=== PATIENT | male | born 1965 | race Caucasian/White ===

== ENCOUNTER 2017-01-28 10:22 | Emergency (ER) | payer OTHER ==
[2017-01-28] MEDS ORDERED: MOTRIN 600 MG PO ONE (10:47)
--- NOTE | 2017-01-28 10:51 | ERPHSYRPT ---
- History of Present Illness Time Seen by Provider: 01/28/17 10:36 Source: patient Patient Subjective Stated Complaint: Pt states he noticed on 01/26/17 he had swelling of his left lower leg. pt states he has pain and swelling. denies any injury. Triage Nursing Assessment: pt pink, warm, dry. left lower leg swelling noted. pedal pulses present and equal in both. no brusing or redness noted. Physician History: CC: left lower leg pain Hx: 51 y/o patient of Dr Apolinar Begum. He noted Friday (3 days) left posterior leg pain when he got out of bed. There was swelling in the leg. Pain to walk. No specific injury. He has hx oif gout. It is not really the joint hurting. Hx of heart disease. No fever, chills, redness. No recent abtx use. Allergies/Adverse Reactions: Penicillins Allergy (Mild, Unverified 01/28/17 10:32) Home Medications: Allopurinol 300 mg [Zyloprim 300 mg] 300 mg PO DAILY 01/28/17 [History] Aspirin/Calcium Carbonate/Mag [Aspirin Buffered 325 mg Tab] 325 mg PO BID [History] Carvedilol 12.5 mg [Coreg 12.5 mg] 12.5 mg PO BID 01/28/17 [History] Chlorthalidone 25 mg PO DAILY 01/28/17 [History] Isosorbide Mononitrate 30 mg [Imdur 30 MG] 30 mg PO DAILY 01/28/17 [History ] Losartan Potassium 50 mg [Cozaar 50 MG] 50 mg PO DAILY 01/28/17 [History] Ranolazine 500 MG [Ranexa 500 MG] 500 mg PO BID 01/28/17 [History] Hx Tetanus, Diphtheria Vaccination/Date Given: Yes (up to date) Hx Influenza Vaccination/Date Given: No Hx Pneumococcal Vaccination/Date Given: No Immunizations Up to Date: Yes - Review of Systems Constitutional: No Fever, No Chills Respiratory: No Dyspnea Cardiac: No Chest Pain Musculoskeletal: Other (pain left lower leg), No Back Pain, No Neck Pain All Other Systems: Reviewed and Negative - Past Medical History Pertinent Past Medical History: Yes Neurological History: No Pertinent History ENT History: No Pertinent History Cardiac History: Coronary Artery Disease, High Cholesterol, Hypertension, Other Respiratory History: No Pertinent History Endocrine Medical History: No Pertinent History Musculoskeletal History: No Pertinent History GI Medical History: GERD History: No Pertinent History Psycho-Social History: No Pertinent History Male Reproductive Disorders: No Pertinent History - Past Surgical History Past Surgical History: Yes Neuro Surgical History: No Pertinent History Cardiac: CABG, Cardiac Catheterization, Cardiac Stent Gastrointestinal: No Pertinent History Genitourinary: No Pertinent History Musculoskeletal: No Pertinent History Male Surgical History: No Pertinent History Other Surgical History: 4 VESSEL CABG. 2 STENTS - Social History Smoking Status: Never smoker Exposure to second hand smoke: No Drug Use: none Patient Lives Alone: No - Nursing Vital Signs Nursing Vital Signs: Initial Vital Signs Temperature 98.0 F Temperature Source Oral Pulse Rate 62 Respiratory Rate 18 Blood Pressure [Right Arm] 161/81 Pain Intensity 3 - Physical Exam General Appearance: alert Eyes, Ears, Nose, Throat Exam: moist mucous membranes Neck Exam: supple Cardiovascular/Respiratory Exam: regular rate/rhythm Neuro/Tendon Exam: normal sensation, normal motor functions Mental Status Exam: alert, oriented x 3, cooperative Skin Exam: warm, dry, No rash Comments: there is tenderness at the achillles. Mild swelling. No erythema. No other calf tenderness. Pain worse with plantar flexion. No ankle redness, swelling, or tenderness. Pulses intact. Procedures - Additional Procedures Progress: Limited left lower leg ultrasound per ERMD to evaluate achilles tendon. No gross rupture noted. There is some fluid surrounding the area of tenderness suggesting partial tear or tendonitis. Visualized veins in left lower leg were compressible. - Course Nursing assessment & vital signs reviewed: Yes - Radiology Exams lower leg X-ray Interpretation: Reviewed by me, Negative Ordered Tests: Active Orders 24 hr Category Date Time Status Crutches STAT Care 01/28/17 10:47 Active Splint STAT Care 01/28/17 10:47 Active LOWER LEG Stat Exams 01/28/17 10:46 Taken Medication Summary Discontinued Medications Generic Name Dose Route Start Last Admin Trade Name Freq PRN Reason Stop Dose Admin Ibuprofen 600 mg 01/28/17 10:47 01/28/17 11:05 Motrin 600 Mg PO 01/28/17 10:48 600 mg STAT ONE Administration Ibuprofen Confirm 01/28/17 10:52 Motrin 600 Mg Administered 01/28/17 10:53 Dose 600 mg .ROUTE .[facility]-MED ONE - Progress Progress Note: 01/28/17 12:15 Advised splint, motrin, norco prn. and office follow up. No sign of DVT. This appears to be achilles in origin. Counseled pt/family regarding: diagnosis, need for follow-up, rad results - Departure Time of Disposition: 12:16 Departure Disposition: Home Clinical Impression: Tendonitis, Achilles, left Condition: Stable Critical Care Time: No Referrals: JULIANO BEGUM [Primary Care Provider] - Instructions: Achilles Tendinopathy, Achilles Tendon Rupture Additional Instructions: Splint Ice packs off and on No weight bearing Follow up with Dr Apolinar Begum in 1-2 days. Rx motrin=ibuprofen 600mg every 6 hours. Rx norco- no driving or operating machinery. Prescriptions: Hydrocodone Bit/Acetaminophen [[place] 5-325 Tablet] 1 each PO Q6H PRN PRN #15 tablet PRN Reason: Pain Ibuprofen 600 mg PO Q6H PRN PRN #24 tablet PRN Reason: Pain
[2017-01-28] MEDS ORDERED: MOTRIN 600 MG ONE (10:52)
[2017-01-28 11:29] VITALS: O2SAT 99
[2017-01-28 12:35] VITALS: BP 150/78; PULSE 72
--- NOTE | 2017-01-28 20:16 | XRAY ---
Indication: Pain. No known injury. Comparison: None 2 views of the left lower leg demonstrates posterior talus accessory ossicle and numerous posterior medial vascular clips. No other bony, articular, or soft tissue abnormalities.
== END 2017-01-28 12:35 | disposition home or self-care (01) ==
LOC: ED 10:22
PROC: 2W3RX1Z Immobilization of Left Lower Leg using Splint (ICD-10-PCS; principal; 2017-01-28)
DX: M76.62 Achilles tendinitis, left leg (principal)
CPT/HCPCS: 29515; 73590; 99284; A9270-GY

== ENCOUNTER 2017-08-27 18:47 | Emergency (ER) | payer OTHER ==
[2017-08-27 19:19] VITALS: O2SAT 98
--- NOTE | 2017-08-27 19:36 | ERPHSYRPT ---
- History of Present Illness Time Seen by Provider: 08/27/17 19:15 Source: patient Exam Limitations: no limitations Patient Subjective Stated Complaint: pt states while walking around shopping today he began having pain, numbness and tingling in his lt leg. sttes he has a cramping sensation in his lt thigh. denies chest pain or pressure at this time. Triage Nursing Assessment: pt alert and oreinted. answers questions approp. pt ambultory with slightly limping gait noted. respirations nonlabored with lungs cta. skin pink warm and dry. sensation, cap refill, pedal pulse wnl. Physician History: 51 y/o male with significant history comes to the ER with complaints of left leg numbness and cramping that started today. Pt states that the pain is mostly in the groin and anterior thigh. Pt also admits to having worsening chest pain for the last several days, especially lying down, goes as high as 8/10, intermittent, pressure like and not being relieved by nitrates. Last cardiac cath was 2 years ago and at that time, Dr Parikh mentioned that his clogged artery was too small for stent placement. Pt also admits to having dizziness and occasional shortness of breath. Timing/Duration: day(s) Activities at Onset: none Quality: tightness Location: substernal Chest Pain Radiation: no radiation Severity of Pain-Max: severe Severity of Pain-Current: none Modifying Factors: Improves With: nothing Nitro Today/Relief: 0.4 mg x 1 Aspirin Treatment Today: provided at home Associated Symptoms: chest pain Prior Chest Pain/Cardiac Workup: cardiac cath Allergies/Adverse Reactions: Penicillins Allergy (Mild, Verified 08/27/17 20:58) Home Medications: Allopurinol 300 mg [Zyloprim 300 mg] 300 mg PO DAILY 01/28/17 [History] Aspirin/Calcium Carbonate/Mag [Aspirin Buffered 325 mg Tab] 325 mg PO BID [History] Carvedilol 12.5 mg [Coreg 12.5 mg] 12.5 mg PO BID 01/28/17 [History] Chlorthalidone 25 mg PO DAILY 01/28/17 [History] Isosorbide Mononitrate 30 mg [Imdur 30 MG] 30 mg PO DAILY 01/28/17 [History ] Losartan Potassium 50 mg [Cozaar 50 MG] 50 mg PO DAILY 01/28/17 [History] Ranolazine 500 MG [Ranexa 500 MG] 500 mg PO BID 01/28/17 [History] Hx Tetanus, Diphtheria Vaccination/Date Given: Yes (up to date) Hx Influenza Vaccination/Date Given: No Hx Pneumococcal Vaccination/Date Given: No Immunizations Up to Date: Yes - Review of Systems Constitutional: No Fever, No Chills Eyes: No Symptoms Ears, Nose, & Throat: No Symptoms Respiratory: Dyspnea, Dyspnea on Exertion (ELLIS), No Cough Cardiac: Chest Pain, Orthopnea, No Edema, No Syncope Abdominal/Gastrointestinal: No Abdominal Pain, No Nausea, No Vomiting, No Diarrhea Genitourinary Symptoms: No Dysuria Musculoskeletal: Myalgias, No Back Pain, No Neck Pain Skin: No Rash Neurological: No Dizziness, No Focal Weakness, No Sensory Changes Psychological: No Symptoms Endocrine: No Symptoms All Other Systems: Reviewed and Negative - Past Medical History Pertinent Past Medical History: Yes Neurological History: No Pertinent History ENT History: No Pertinent History Cardiac History: Coronary Artery Disease, High Cholesterol, Hypertension, Other Respiratory History: No Pertinent History Endocrine Medical History: No Pertinent History Musculoskeletal History: No Pertinent History GI Medical History: GERD History: No Pertinent History Psycho-Social History: No Pertinent History Male Reproductive Disorders: No Pertinent History Other Medical History: angina - Past Surgical History Past Surgical History: Yes Neuro Surgical History: No Pertinent History Cardiac: CABG, Cardiac Catheterization, Cardiac Stent Gastrointestinal: No Pertinent History Genitourinary: No Pertinent History Musculoskeletal: No Pertinent History Male Surgical History: No Pertinent History Other Surgical History: 4 VESSEL CABG. 2 STENTS - Social History Smoking Status: Never smoker Exposure to second hand smoke: No Drug Use: none Patient Lives Alone: No - Nursing Vital Signs Nursing Vital Signs: Initial Vital Signs Temperature 98.3 F 08/27/17 19:11 Pulse Rate 64 08/27/17 19:11 Respiratory Rate 18 08/27/17 19:11 Blood Pressure 115/70 08/27/17 19:11 O2 Sat by Pulse Oximetry 98 08/27/17 19:11 Pain Scale Pain Intensity [Left Thigh] 4 Pain Intensity 4 - Physical Exam General Appearance: no apparent distress, alert Eye Exam: PERRL/EOMI, eyes nml inspection Ears, Nose, Throat Exam: normal ENT inspection, moist mucous membranes Neck Exam: normal inspection, non-tender, supple Respiratory Exam: normal breath sounds, lungs clear, No respiratory distress Cardiovascular Exam: regular rate/rhythm, normal heart sounds, No edema Gastrointestinal/Abdomen Exam: soft, No tenderness, No mass Back Exam: normal inspection, No CVA tenderness, No vertebral tenderness Extremity Exam: normal inspection, normal range of motion Neurologic Exam: alert, oriented x 3, cooperative, normal mood/affect, nml cerebellar function, sensation nml, No motor deficits Skin Exam: normal color, warm, dry Lymphatic Exam: No adenopathy SpO2: 98 Oxygen Delivery: Room Air - Course Nursing assessment & vital signs reviewed: Yes EKG Interpreted by Me: RATE, NORMAL AXIS, NORMAL INTERVALS, Non-specific ST Changes Ordered Tests: Active Orders 24 hr Category Date Time Status Model Maker Plaster STAT Care 08/27/17 19:22 Active EKG-ER Only STAT Care 08/27/17 19:21 Active IV Insertion STAT Care 08/27/17 19:21 Active CHEST 1 VIEW (PORTABLE) Stat Exams 08/27/17 19:22 Taken VENOUS UNILAT/LIMITED EXTREMIT [US] Stat Exams 08/27/17 Ordered CBC W DIFF Stat Lab 08/27/17 19:58 Completed CK-Creatinine Phosphokinase Stat Lab 08/27/17 19:58 Completed CMP Stat Lab 08/27/17 19:58 Completed D-DIMER QUANTITATION Stat Lab 08/27/17 19:58 Completed NT PRO BNP Stat Lab 08/27/17 19:58 Completed PROTIME WITH INR Stat Lab 08/27/17 19:58 Completed PTT Stat Lab 08/27/17 19:58 Completed TROPONIN Q3H Lab 08/27/17 19:58 Completed TROPONIN Q3H Lab 08/27/17 22:30 Ordered TROPONIN Q3H Lab 08/28/17 01:30 Ordered TROPONIN Q3H Lab 08/28/17 04:30 Ordered TROPONIN Q3H Lab 08/28/17 07:30 Ordered Medication Summary Generic Name Dose Route Start Last Admin Trade Name Freq PRN Reason Stop Dose Admin Heparin Sodium/Dextrose 25,000 units in 250 mls @ 10 mls/hr 08/27/17 21:00 Heparin 25,000 Units/D5w 250ml Premix IV 09/26/17 20:59 .Q24H HEYDI Discontinued Medications Generic Name Dose Route Start Last Admin Trade Name Freq PRN Reason Stop Dose Admin Aspirin 81 mg 08/27/17 20:53 Baby Aspirin 81 Mg Chew PO 08/27/17 20:54 STAT ONE Clopidogrel Bisulfate 300 mg 08/27/17 20:54 Plavix 75 Mg Tablet PO 08/27/17 20:55 STAT ONE Heparin Sodium (Beef Lung) 5,000 unit 08/27/17 20:54 Heparin 5000 Units/0.5 Ml (High Risk Med) IV 08/27/17 20:55 STAT ONE Lab/Rad Data: Laboratory Result Diagrams 08/27/17 19:58 08/27/17 19:58 Laboratory Results 08/27/17 08/27/17 08/27/17 Range/Units 19:58 19:58 19:58 WBC (4.0-10.5) K/mm3 RBC (4.1-5.6) M/mm3 Hgb (12.5-18.0) gm/dl Hct (42-50) % MCV (78-100) fl MCH (26-32) pg MCHC (32-36) g/dl RDW (11.5-14.0) % Plt Count (150-450) K/mm3 MPV (6-9.5) fl Gran % (36.0-66.0) % Lymphocytes % (24.0-44.0) % Monocytes % (0.0-12.0) % Eosinophils % (0.00-5.0) % Basophils % (0.0-0.4) % Basophils # (0-0.4) INR 1.09 (0.8-3.0) APTT 38.8 H (24.1-36.1) SECONDS D-Dimer < 215.00 (0-500) ng/mL Sodium 139 (136-145) mEq/L Potassium 4.0 (3.5-5.1) mEq/L Chloride 103 (98-107) mEq/L Carbon Dioxide 29.9 (21-32) mEq/L Anion Gap 9.7 (5-15) MEQ/L BUN 13 (9-20) mg/dL Creatinine 1.32 H (0.55-1.30) mg/dl Estimated GFR > 60 ML/MIN Glucose 90 (70-110) MG/DL Calcium 9.3 (8.5-10.1) mg/dL Total Bilirubin 1.30 H (0.2-1.0) mg/dL AST 33 (15-37) U/L ALT 39 (12-78) U/L Alkaline Phosphatase 79 (46-116) U/L Creatine Kinase 152 (39-308) U/L Troponin I 1.185 H* (0.000-0.056) ng/ml NT-Pro-B Natriuret Pep 350 H (0-125) pg/ml Serum Total Protein 7.7 (6.4-8.2) gm/dL Albumin 4.0 (3.4-5.0) g/dL 08/27/17 Range/Units 19:58 WBC 9.7 (4.0-10.5) K/mm3 RBC 4.56 (4.1-5.6) M/mm3 Hgb 14.4 (12.5-18.0) gm/dl Hct 39.4 L (42-50) % MCV 86.4 (78-100) fl MCH 31.6 (26-32) pg MCHC 36.5 H (32-36) g/dl RDW 13.4 (11.5-14.0) % Plt Count 232 (150-450) K/mm3 MPV 9.5 (6-9.5) fl Gran % 53.3 (36.0-66.0) % Lymphocytes % 36.9 (24.0-44.0) % Monocytes % 7.5 (0.0-12.0) % Eosinophils % 2.0 (0.00-5.0) % Basophils % 0.3 (0.0-0.4) % Basophils # 0.03 (0-0.4) INR (0.8-3.0) APTT (24.1-36.1) SECONDS D-Dimer (0-500) ng/mL Sodium (136-145) mEq/L Potassium (3.5-5.1) mEq/L Chloride (98-107) mEq/L Carbon Dioxide (21-32) mEq/L Anion Gap (5-15) MEQ/L BUN (9-20) mg/dL Creatinine (0.55-1.30) mg/dl Estimated GFR ML/MIN Glucose (70-110) MG/DL Calcium (8.5-10.1) mg/dL Total Bilirubin (0.2-1.0) mg/dL AST (15-37) U/L ALT (12-78) U/L Alkaline Phosphatase (46-116) U/L Creatine Kinase (39-308) U/L Troponin I (0.000-0.056) ng/ml NT-Pro-B Natriuret Pep (0-125) pg/ml Serum Total Protein (6.4-8.2) gm/dL Albumin (3.4-5.0) g/dL - Progress Progress: improved Progress Note: 08/27/17 20:55 The troponin is 1.185. The EKG does not show any acute findings. The doppler US shows a below the knee DVT. Pt has already taken 3 baby ASA today and will be given an additional dose now, as well as plavix 300mg PO X 1 dose and heparin drip. [facility] and DVT under the care of Dr. Richardson 08/27/17 21:00 - Departure Time of Disposition: 21:00 Departure Disposition: Transfer Clinical Impression: NSTEMI (non-ST elevated myocardial infarction) DVT (deep venous thrombosis) Qualifiers: DVT location: lower extremity Affected thrombotic vein of extremity: unspecified lower extremity proximal vein Chronicity: acute Laterality: left Qualified Code(s): I82.4Y2 - Acute embolism and thrombosis of unspecified deep veins of left proximal lower extremity Condition: Stable Critical Care Time: Yes Critical Care Time(excluding separately billable procedures): 30-74 minutes Referrals: JULIANO BEGUM [Primary Care Provider] -
[2017-08-27 20:02] LABS: BASOPHIL % 0.3 % (0.0-0.4); Basophil (Absolute #) 0.03 (0-0.4); Eosinophil (Absolute #) 0.19 (0-0.5); Granulocyte Absolute (ANC) 5.16 (1.4-6.9); Granulocytes % 53.3 % (36.0-66.0); Hematocrit 39.4 % (42-50); Hemoglobin 14.4 gm/dl (12.5-18.0); Lymphocyte (Absolute #) 3.57 (1.0-4.6); Lymphocytes % 36.9 % (24.0-44.0); Mean Cell Volume 86.4 fl (78-100); Mean Corpuscular Hemoglobin 31.6 pg (26-32); Mean Corpuscular Hgb Concent. 36.5 g/dl (32-36); Mean Platelet Volume 9.5 fl (6-9.5); Monocyte (Absolute #) 0.73 (0.0-1.3); Monocytes % 7.5 % (0.0-12.0); Platelet Count 232 K/mm3 (150-450); Red Blood Count 4.56 M/mm3 (4.1-5.6); Red Cell Distribution Width 13.4 % (11.5-14.0); White Blood Count 9.7 K/mm3 (4.0-10.5)
[2017-08-27 20:17] LABS: INR 1.09 (0.8-3.0)
[2017-08-27 20:20] LABS: PTT 38.8 SECONDS (24.1-36.1)
[2017-08-27 20:31] LABS: D-DIMER QUANTITATION < 215.00 ng/mL (0-500)
[2017-08-27 20:37] LABS: ALKALINE PHOSPHATASE 79 U/L (46-116); ANION GAP 9.7 MEQ/L (5-15); BLOOD UREA NITROGEN 13 mg/dL (9-20); CHLORIDE 103 mEq/L (98-107); CK-Creatinine Phosphokinase 152 U/L (39-308); Calcium 9.3 mg/dL (8.5-10.1); Carbon Dioxide 29.9 mEq/L (21-32); Creatinine 1 1.32 mg/dl (0.55-1.30); EST GLOMERULAR FILTRATION RATE > 60 ML/MIN; Glucose 90 MG/DL (70-110); NT PRO BNP 350 pg/ml (0-125); SGOT/AST 33 U/L (15-37); SGPT/ALT 39 U/L (12-78); SODIUM 139 mEq/L (136-145); Total Protein 7.7 gm/dL (6.4-8.2)
[2017-08-27] MEDS ORDERED: BABY ASPIRIN 81 MG CHEW PO ONE (20:53)
[2017-08-27] MEDS ORDERED: Heparin 5000 UNITS/0.5 ML (HIGH RISK MED) IV ONE (20:54)
[2017-08-27] MEDS ORDERED: PLAVIX 75 MG Tablet PO ONE (20:54)
[2017-08-27] MEDS ORDERED: PLAVIX 75 MG Tablet ONE (21:00)
[2017-08-27] MEDS ORDERED: BABY ASPIRIN 81 MG CHEW ONE (21:00)
[2017-08-27] MEDS ORDERED: Heparin 25,000 units/D5W 250ML PREMIX 25,000 UNITS/250 ML BAG IV SCH (21:00)
[2017-08-27] MEDS ORDERED: Heparin 25,000 units/D5W 250ML PREMIX 25,000 UNITS/250 ML BAG IV ONE (21:00)
[2017-08-27] MEDS ORDERED: Heparin 5000 UNITS/0.5 ML (HIGH RISK MED) ONE (21:00)
[2017-08-27 21:23] VITALS: BP 135/78; PULSE 63
--- NOTE | 2017-08-28 08:37 | XRAY ---
Indication: Chest pain. Comparison: None Portable apical lordotic chest is clear with a few incidental calcified granulomas. Heart and mediastinal structures within normal limits for AP portable technique and demonstrates previous CABG surgery. Bony thorax intact. Impression: Nonacute chest.
--- NOTE | 2017-08-28 08:39 | XRAY ---
Indication: Left leg pain. Two-dimensional sonogram and color Doppler imaging of the major venous vessels of the left leg was performed. Comparison: None There is near occluding thrombus in the tibioperoneal trunk. No other thrombus seen in the remaining deep venous vessels of the left leg including greater saphenous vein. Patent veins demonstrate normal compressibility. Venous waveforms are normal with and without augmentation. Impression: Tibioperoneal trunk DVT. Comment: Preliminary report was given.
== END 2017-08-27 21:59 | disposition short-term general hospital (02) ==
LOC: ED 18:47
DX: I21.4 Non-ST elevation (NSTEMI) myocardial infarction (principal); I82.4Y2 Acute embolism and thrombosis of unspecified deep veins of left proximal lower extremity
CPT/HCPCS: 36000; 36415; 71045; 80053; 82550; 83880; 84484; 85025; 85379; 85610; 85730; 93005; 93041; 93971; 96360; 96365; 96374; 99285; J1644; A9270-GY

== ENCOUNTER 2018-11-26 23:08 | Emergency (ER) | payer MEDICARE ==
[2018-11-26 23:22] VITALS: O2SAT 98
--- NOTE | 2018-11-26 23:24 | ERPHSYRPT ---
- History of Present Illness Time Seen by Provider: 11/26/18 23:24 Patient Subjective Stated Complaint: pt is alert and oriented. pt is ambulatory with a steady gait. pt comes in with c/o left lower leg swelling. pt has mild swelling to calf area of leg, no edema, no redness noted. pedal pulses strong and equal bilat. pt cap refil <3 sec. pt reports no sensation loss, left foot is warm to touch. pt states that he has a + michael's sign in his left leg. pt does have hx of DVT but unsure of which leg. pt states that his pain is a 1 when he is not moving but when he walks "it shoots up there". pt bp is 191/108, pt states he does have a headache at the moment. Triage Nursing Assessment: see above Physician History: 52 y/o obese white male with h/o cadz, htn and h/o left calf dvt. pt is on eliquis. pt admits he is not compliant with any of his meds. he states he did take his htn meds and eliquis meds today. pt complains of left calf pain/ achiness since this am. Method of Injury: other (no injury) Occurred: this morning Quality: aching Severity of Pain-Max: mild Severity of Pain-Current: mild Lower Extremities Pain: other: left (calf) Modifying Factors: Improves With: movement Allergies/Adverse Reactions: Penicillins Allergy (Mild, Verified 08/27/17 20:58) Home Medications: Carvedilol 12.5 mg [Coreg 12.5 mg] 3.125 mg PO BID 01/28/17 [History] Ranolazine 500 MG [Ranexa 500 MG] 1,000 mg PO BID 01/28/17 [History] Apixaban [Eliquis 2.5 mg Tablet] 2.5 mg PO BID 11/26/18 [History] Aspirin EC 81 mg [Ecotrin 81 mg] 81 mg PO DAILY 11/26/18 [History] Furosemide 20 mg [Lasix 20 mg] 20 mg PO DAILY 11/26/18 [History] Nitroglycerin [Nitro-Dur] 0.6 mg TD DAILY 11/26/18 [History] Rosuvastatin Calcium 40 mg PO DAILY 11/26/18 [History] Spironolactone 25 mg [Aldactone 25 MG] 25 mg PO DAILY 11/26/18 [History] Hx Tetanus, Diphtheria Vaccination/Date Given: Yes (up to date) Hx Influenza Vaccination/Date Given: No Hx Pneumococcal Vaccination/Date Given: No Immunizations Up to Date: Yes - Review of Systems Constitutional: No Symptoms Eyes: No Symptoms Ears, Nose, & Throat: No Symptoms Respiratory: No Symptoms Cardiac: No Symptoms Abdominal/Gastrointestinal: No Symptoms Genitourinary Symptoms: No Symptoms Musculoskeletal: Other (left calf) Skin: No Symptoms Neurological: No Symptoms Psychological: No Symptoms Endocrine: No Symptoms Hematologic/Lymphatic: No Symptoms Immunological/Allergic: No Symptoms All Other Systems: Reviewed and Negative - Past Medical History Pertinent Past Medical History: Yes Neurological History: No Pertinent History ENT History: No Pertinent History Cardiac History: Coronary Artery Disease, Deep Vein Thrombosis, High Cholesterol , Hypertension, Myocardial Infarction ([place]), Other Respiratory History: No Pertinent History Endocrine Medical History: No Pertinent History Musculoskeletal History: No Pertinent History GI Medical History: GERD History: No Pertinent History Psycho-Social History: No Pertinent History Male Reproductive Disorders: No Pertinent History Other Medical History: angina - Past Surgical History Past Surgical History: Yes Neuro Surgical History: No Pertinent History Cardiac: CABG, Cardiac Catheterization, Cardiac Stent Gastrointestinal: No Pertinent History Genitourinary: No Pertinent History Musculoskeletal: No Pertinent History Male Surgical History: No Pertinent History Other Surgical History: 4 VESSEL CABG. 2 STENTS - Social History Smoking Status: Never smoker Exposure to second hand smoke: No Drug Use: none Patient Lives Alone: No - Nursing Vital Signs Nursing Vital Signs: Initial Vital Signs Temperature 98.4 F 11/26/18 23:14 Pulse Rate 72 11/26/18 23:14 Respiratory Rate 16 11/26/18 23:14 Blood Pressure 191/108 11/26/18 23:14 O2 Sat by Pulse Oximetry 98 11/26/18 23:14 Pain Scale Pain Intensity 1 - Physical Exam General Appearance: no apparent distress, alert, anxiety Eyes, Ears, Nose, Throat Exam: normal ENT inspection, moist mucous membranes Neck Exam: normal inspection, non-tender, supple, full range of motion Cardiovascular/Respiratory Exam: chest non-tender, normal breath sounds, regular rate/rhythm, heart sounds normal, no respiratory distress Gastrointestinal/Abdominal Exam: non-tender, soft Back Exam: normal inspection, normal range of motion, No CVA tenderness, No vertebral tenderness Hips Exam: bilateral: non-tender, normal inspection, normal range of motion, no evidence of injury Legs Exam: right leg: non-tender, normal inspection, normal range of motion, left leg: soft tissue tenderness (calf), swelling (mild at calf), bilateral leg : no evidence of injury Knees Exam: bilateral knee: non-tender, normal inspection, normal range of motion, no evidence of injury Ankle Exam: bilateral ankle: non-tender, normal inspection, normal range of motion, no evidence of injury Foot Exam: bilateral foot: non-tender, normal inspection, normal range of motion , no evidence of injury Neuro/Tendon Exam: normal sensation, normal motor functions, normal tendon functions Mental Status Exam: alert, oriented x 3, cooperative Skin Exam: normal color SpO2 Interpretation: normal SpO2: 98 O2 Delivery: Room Air Ordered Tests: Active Orders 24 hr Category Date Time Status D-DIMER QUANTITATION Stat Lab 11/26/18 23:55 Completed Medication Summary Discontinued Medications Generic Name Dose Route Start Last Admin Trade Name Adi PRN Reason Stop Dose Admin Oxycodone/Acetaminophen 1 tab 11/26/18 23:49 11/26/18 23:59 Percocet Tablet 5/325mg PO 11/26/18 23:50 1 tab STAT STA Administration Oxycodone/Acetaminophen Confirm 11/26/18 23:58 Percocet Tablet 5/325mg Administered 11/26/18 23:59 Dose 1 tab .ROUTE .STK-MED ONE Lab/Rad Data: Laboratory Results 11/26/18 Range/Units 23:55 D-Dimer < 215 L (215-500) ng/mL - Progress Progress: improved Counseled pt/family regarding: lab results, diagnosis, need for follow-up - Departure Departure Disposition: Home Clinical Impression: Tenderness of left calf, Swelling of left lower extremity Condition: Stable Critical Care Time: No Referrals: ALMA DELIA CARLSON [Primary Care Provider] - Additional Instructions: keep appointment scheduled later today for your left leg venous doppler. continue your medications as prescribed.
[2018-11-26] MEDS ORDERED: PERCOCET TABLET 5/325MG PO STA (23:49)
[2018-11-26] MEDS ORDERED: PERCOCET TABLET 5/325MG ONE (23:58)
[2018-11-27 00:06] VITALS: BP 140/82; PULSE 64
== END 2018-11-27 00:47 | disposition home or self-care (01) ==
LOC: ED 23:08
DX: M79.662 Pain in left lower leg (principal); M79.89 Other specified soft tissue disorders
CPT/HCPCS: 36415; 85379; 99283; A9270-GY

== ENCOUNTER 2024-08-23 05:48 | Day surgery (SDC) | payer MEDICARE ==
[2024-08-23] MEDS: Lactated Ringers 1,000 ML IV SCH (06:11)
[2024-08-23 06:40] LABS: Absolute Neutrophil Ct (ANC) 4.91 x10^3/uL (1.78-5.38); BASOPHIL % 0.5 % (0.2-1.2); Basophil (Absolute #) 0.04 x10^3/uL (0.01-0.08); Eosinophil (Absolute #) 0.25 x10^3/uL (0.04-0.54); Hematocrit 40.9 % (40.1-51.0); Hemoglobin 14.8 g/dL (13.7-17.5); IMMATURE GRAN # 0.03 x10^3u/L (0.001-0.031); IMMATURE GRAN % 0.4 % (0.001-0.429); Lymphocyte (Absolute #) 2.73 x10^3/uL (1.32-3.57); Lymphocytes % 32.5 % (21.8-53.1); Mean Cell Volume 84.9 fL (79.0-92.2); Mean Corpuscular Hemoglobin 30.7 pg (25.7-32.2); Mean Corpuscular Hgb Concent. 36.2 g/dL (32.3-36.5); Mean Platelet Volume 8.8 fL (9.4-12.4); Monocyte (Absolute #) 0.44 x10^3/uL (0.30-0.82); Monocytes % 5.2 % (5.3-12.2); Neutrophil % 58.4 % (34.0-67.9); Platelet Count 278 x10^3/uL (163-337); Red Blood Count 4.82 x10^6/uL (4.63-6.08); White Blood Count 8.4 x10^3/uL (4.23-9.07)
[2024-08-23 06:44] VITALS: TEMP 96.8
[2024-08-23 06:52] LABS: Calcium 9.1 mg/dL (8.4-10.2); Creatinine 1 1.2 mg/dL (0.66-1.25); Potassium 4.8 mmol/L (3.5-5.1)
[2024-08-23] MEDS ORDERED: propofoL IV ONE ×2 (08:05→08:23)
[2024-08-23] MEDS ORDERED: Xylocaine-Mpf 2% 5 Ml Vial ONE (08:05)
[2024-08-23] MEDS ORDERED: ROBINUL ONE (08:13)
[2024-08-23 08:49] VITALS: RESP 16
[2024-08-23 09:01] VITALS: BP 162/75; PULSE 57; O2SAT 97
--- NOTE | 2024-08-24 18:29 | OP ---
SURGERY DATE/TIME: 08/23/2024 6911-0017 PREOPERATIVE DIAGNOSIS: Positive Cologuard. POSTOPERATIVE DIAGNOSIS: Small descending colon polyp. PROCEDURE: Colonoscopy with hot snare polypectomy and forceps removal. SURGEON: Maurisio Phelps MD. ANESTHESIA: Medications were given by the anesthesia department. INDICATIONS: The patient is a 58-year-old white male patient presenting now for colonoscopic evaluation due to a positive Cologuard test. The patient was apprised of the risks of the procedure including the risk of perforation, phlebitis, untoward reaction to medication, bleeding, and missed lesions. Patient verbalized his understanding and desired to have the procedure performed. DESCRIPTION OF PROCEDURE AND FINDINGS: Patient was given medication by the anesthesia department. He had continuous pulse oximetry, ECG monitoring, and intermittent blood pressure monitoring during the examination. He was placed in the left lateral decubitus position. Digital rectal examination was performed and revealed normal anal sphincter tone, no masses, and normal prostate. The flexible Olympus videocolonoscope was used to intubate the rectum. A view of the colon was developed sequentially to the cecum. Upon insertion and withdrawal, there was noted a polyp in the descending colon; this was removed using a combination of hot polypectomy snare and residual polyp removal with the polyp forceps. With no other mucosal lesions being encountered, the scope was removed from the patient who tolerated the procedure well and was sent back to outpatient recovery in good condition. The prep was noted to be fair to good.
== END 2024-08-23 09:10 | disposition home or self-care (01) ==
LOC: SDC 05:48
PROVIDERS: ATTEND Family Medicine
DX: D12.4 Benign neoplasm of descending colon (principal); R19.5 Other fecal abnormalities
CPT/HCPCS: 36415; 80048; 85025; 93005; J2704